=== PATIENT | female | born 1960 | race Caucasian/White ===

== ENCOUNTER 2020-07-06 00:40 | Emergency (ER) | payer OTHER ==
[~2020-07-06] VITALS: Ht 170.2 cm; Wt 56.7 kg
--- NOTE | 2020-07-06 00:40 | NUR ---
PT TAKEN TO BED 12 VIA [facility].
--- NOTE | 2020-07-06 00:45 | NUR ---
59 Y/O FEMALE BIBA PER EMS POSSIBLE METH WITHDRAWAL, ALOC. GCS 12, PT UNABLE TO PARTICIPATE WITH ASSESMENT. LUNGS CLEAR BL; HR EVEN AND REGULAR; NO SOB, OR COUGH NOTED AT THIS TIME; PATIENT POSITIONED FOR COMFORT; HOB ELEVATED; BEDRAILS UP X2 FOR SAFETY ; BED DOWN AND LOCKED IN LOWEST POSITION. PT PLACED ON SUPERVISOR METER REPAIR SHOP. MEDHX: UNABLE TO OBTAIN ALLERGIES: UNOBTAINABLE
[2020-07-06 00:52] VITALS: BP 166/111
--- NOTE | 2020-07-06 01:05 | NUR ---
ERMD AT BEDSIDE EVALUATING PT.
[2020-07-06] MEDS ORDERED: LORazepam 2 MG/ML VIAL IVP ONE (01:15)
[2020-07-06] MEDS ORDERED: NACL 0.9% 1,000 ML IV ONE (01:15)
[2020-07-06 01:41] LABS: BASOPHILS % (AUTO) 0.3 % (0.0-2.0); HEMATOCRIT 45.3 % (36-48); LYMPHOCYTES # (AUTO) 1.6 K/uL (2.5-16.5); LYMPHOCYTES % (AUTO) 11.3 % (20.5-51.1); MEAN CORPUSCULAR HEMOGLOBIN 28 pg (27-31); MEAN CORPUSCULAR HGB CONC 33 g/dL (33-37); MEAN CORPUSCULAR VOLUME 84.3 fL (80-94); MONOCYTES # (AUTO) 0.7 K/uL (0.8-1.0); MONOCYTES % (AUTO) 4.9 % (1.7-9.3); NEUTROPHILS # (AUTO) 11.9 K/uL (1.8-7.7); NEUTROPHILS % (AUTO) 83.5 % (42.2-75.2); PLATELET COUNT (AUTO) 322 K/uL (140-450); RED BLOOD CELL COUNT(AUTO) 5.37 MIL/uL (4.20-5.40); RED CELL DISTRIBUTION WIDTH 14.1 % (11.6-13.7); WHITE BLOOD COUNT (AUTO) 14.3 K/uL (4.8-10.8)
--- NOTE | 2020-07-06 01:45 | NUR ---
Lab collected & given to biology laboratory assistant
[2020-07-06 02:00] LABS: ALBUMIN 4.3 g/dL (3.4-5.0); ANION GAP 19.6 (8-16); ASPARTATE AMINOTRANSFERASE 25 U/L (15-37); CARBON DIOXIDE 23.8 mmol/L (21-32); CHLORIDE 95 mmol/L (98-107); CREATININE 0.8 mg/dL (0.6-1.3); GFR ARICAN-AMERICAN 94 mL/min (>90); GLUCOSE 212 mg/dL (74-106); POTASSIUM 3.4 mmol/L (3.5-5.1); SALICYLATE 3.6 mg/dL (2.8-20.0); SODIUM SERUM 135 mmol/L (136-145); TOTAL BILIRUBIN 0.7 mg/dL (0.0-1.0); UREA NITROGEN, BLOOD 19 mg/dL (7-18)
--- NOTE | 2020-07-06 02:00 | NUR ---
Pt taken to CT.
[2020-07-06 02:02] LABS: ACETAMINOPHEN < 0.5 ug/ml (10-30)
--- NOTE | 2020-07-06 02:08 | NUR ---
PT RETURNED FROM CT VIA [facility].
--- NOTE | 2020-07-06 02:23 | NUR ---
UA COLLECTED VIA STRAIGHT CATH. PER PT GAVE PERMISSION. PT TOLERATED PROCEDURE WELL. UA GIVEN TO [place].
[2020-07-06 02:28] LABS: APPEARANCE,URINE CLEAR (CLEAR); BILIRUBIN,URINE NEGATIVE (NEGATIVE); BLOOD, URINE 3+ (NEGATIVE); COLOR,URINE YELLOW (YELLOW); LEUKOCYTE ESTERASE ,URINE NEGATIVE (NEGATIVE); NITRITE, URINE NEGATIVE (NEGATIVE); UGLUCOSE 1+ (NEGATIVE)
[2020-07-06 02:45] LABS: BARBITURATE, URINE NEGATIVE ng/ml (NEG <=200); BENZODIAZEPINE, URINE POSITIVE ng/mL (NEG <=200); CANNABINOID, URINE POSITIVE ng/mL (NEG <=50); COCAINE, URINE NEGATIVE ng/mL (NEG <=300); OPIATE, URINE NEGATIVE ng/mL (NEG <=2000); PHENCYCLIDINE SCREEN,URINE NEGATIVE ng/mL (NEG <=25)
[2020-07-06 02:50] LABS: RBC,URINE 20-50 /HPF (0-5)
[2020-07-06 02:52] LABS: YEAST,URINE Few /HPF (None Seen)
--- NOTE | 2020-07-06 03:57 | NUR ---
Patient appears to be resting comfortably in bed. Vital Signs within normal limits. Respirations even and unlabored. 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
[2020-07-06] MEDS ORDERED: OLANZapine 5 MG ODT PO ONE (04:05)
--- NOTE | 2020-07-06 05:30 | NUR ---
Patient appears to be resting comfortably in bed. Vital Signs within normal limits. Respirations even and unlabored.
--- NOTE | 2020-07-06 06:00 | NUR ---
IV removed, catheter intact and site benign. Applied folded 4x4 gauze and tape to stop bleeding.
[2020-07-06 06:10] VITALS: BP 127/86
--- NOTE | 2020-07-06 06:10 | NUR ---
Patient discharged with v/s stable. Written and verbal after care instructions given and explained. Patient verbalized understanding. Ambulatory with steady gait. All questions addressed prior to discharge. Advised to follow up with PMD.
== END 2020-07-06 06:10 | disposition home or self-care (01) ==
LOC: MED 00:40
DX: F19.10 Other psychoactive substance abuse, uncomplicated (principal)
CPT/HCPCS: 36415; 70450; 80053; 80305; 81001; 81025; 84484; 85025; 87086; 96361; 96374; 99285; G0480; G0482; J2060; J7030; 99284

== ENCOUNTER 2020-08-17 21:02 | Emergency (ER) | payer OTHER ==
[~2020-08-17] VITALS: Ht 170.2 cm; Wt 51.3 kg
[2020-08-17 22:19] VITALS: BP 140/99
[2020-08-18] MEDS ORDERED: LORazepam 2 MG/ML VIAL IVP ONE
[2020-08-18] MEDS ORDERED: NACL 0.9% 1,000 ML IV ONE
[2020-08-18 00:27] LABS: HEMATOCRIT 45.1 % (36-48); HEMOGLOBIN 15.1 g/dL (12.0-16.0); MEAN CORPUSCULAR HEMOGLOBIN 28 pg (27-31); MEAN CORPUSCULAR HGB CONC 34 g/dL (33-37); MEAN CORPUSCULAR VOLUME 83.7 fL (80-94); PLATELET COUNT (AUTO) 411 K/uL (140-450); RED BLOOD CELL COUNT(AUTO) 5.39 MIL/uL (4.20-5.40); RED CELL DISTRIBUTION WIDTH 14.2 % (11.6-13.7); WHITE BLOOD COUNT (AUTO) 22.5 K/uL (4.8-10.8)
[2020-08-18 00:55] LABS: ALBUMIN 4.3 g/dL (3.4-5.0); ANION GAP 19.4 (8-16); ASPARTATE AMINOTRANSFERASE 30 U/L (15-37); CARBON DIOXIDE 22.5 mmol/L (21-32); CHLORIDE 90 mmol/L (98-107); CREATININE 1.2 mg/dL (0.6-1.3); GFR ARICAN-AMERICAN 59 mL/min (>90); GLUCOSE 223 mg/dL (74-106); SODIUM SERUM 129 mmol/L (136-145); TOTAL BILIRUBIN 0.7 mg/dL (0.0-1.0); UREA NITROGEN, BLOOD 18 mg/dL (7-18)
[2020-08-18 00:58] LABS: LYMPHOCYTES % (MANUAL) 16 % (20-46); MONOCYTES % (MANUAL) 6 % (5-12)
[2020-08-18 01:01] LABS: POTASSIUM 2.9 mmol/L (3.5-5.1)
--- NOTE | 2020-08-18 03:15 | NUR ---
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
--- NOTE | 2020-08-18 05:25 | NUR ---
PT LEFT AMA
== END 2020-08-18 05:25 | disposition left against medical advice (07) ==
LOC: MED 21:02
DX: F15.921 Other stimulant use, unspecified with intoxication delirium (principal); Z71.6 Tobacco abuse counseling
CPT/HCPCS: 80053; 85025; 96374; 99283; G0482; J2060